=== PATIENT | female | born 1985 | race Caucasian/White ===

== ENCOUNTER 2017-05-09 11:07 | Day surgery (SDC) | payer BC ==
[~2017-05-09] VITALS: Ht 165.1 cm; Wt 89.8 kg
[~2017-05-09 11:07] MED LIST: AUGMENTIN875 MG PO; FOLBIC RF TABL1 EACH PO; IRON325 M1 PO; Micronor PO; Motrin PO; Natalcare Rx,Pramile PO; PERCOCET 5/31 TABLET PO; PRILOSEC40 MG PO; SERTRALINE HCL50 MG PO; TRAZODONE HCL50 MG PO; TYLENOL EXTRA500 MG PO; VIACTIV SOFT C1 EACH PO; Vicodin,Norco 5/325 PO; Vitamin D PO; celeBREX PO
[2017-05-09 12:09] VITALS: BP 100/54
[2017-05-09 12:31] LABS: MCH 15.8 PG (29.0-34.0); MCHC 27.7 G/DL (30.0-36.0); MCV 56.9 FL (83-99); RBC DIS.WIDTH-CV 20.2 % (11.8-14.6); RBC DIS.WIDTH-SD 37.4 % (39-53); RED BLOOD COUNT 4.57 M/uL (3.80-5.20); WHITE BLOOD COUNT 6.2 K/uL (4.1-10.2)
[2017-05-09 12:32] LABS: PLATELET COUNT 424 K/uL (156-360)
[2017-05-09 15:50] VITALS: BP 95/52
[2017-05-09 16:53] VITALS: BP 99/48
[2017-05-09 18:00] VITALS: BP 104/52
== END 2017-05-09 18:05 | disposition home or self-care (01) ==
LOC: SDC 11:07
PROVIDERS: Obstetrics & Gynecology
PROC: 0U574ZZ Destruction of Bilateral Fallopian Tubes, Percutaneous Endoscopic Approach (ICD-10-PCS; principal; 2017-05-09)
DX: Z30.2 Encounter for sterilization (principal); K21.9 Gastro-esophageal reflux disease without esophagitis; Z98.84 Bariatric surgery status; Z83.3 Family history of diabetes mellitus; Z82.49 Family history of ischemic heart disease and other diseases of the circulatory system
CPT/HCPCS: 85027; J0330; J1100; J1170; J1885; J2250; J2405; J2710; J3010; S0020

== ENCOUNTER 2017-10-23 06:40 | Day surgery (SDC) | payer BC ==
[~2017-10-23] VITALS: Ht 165.1 cm; Wt 90.7 kg
[~2017-10-23 06:40] MED LIST changes: +CYANOCOBAL1000 MCG/2 IM; +ERGOCALCIF50000 UNIT PO
[2017-10-23 07:04] VITALS: BP 85/46
[2017-10-23] MEDS ORDERED: ULTRAM50 MG PO (10:14)
[2017-10-23 11:08] VITALS: BP 104/58
[2017-10-23 11:31] VITALS: BP 107/58
== END 2017-10-23 11:40 | disposition home or self-care (01) ==
LOC: SDC 06:40
PROC: 0JBD0ZZ Excision of Right Upper Arm Subcutaneous Tissue and Fascia, Open Approach (ICD-10-PCS; principal; 2017-10-23)
DX: D17.20 Benign lipomatous neoplasm of skin and subcutaneous tissue of unspecified limb (principal); F41.8 Other specified anxiety disorders; Z98.84 Bariatric surgery status
CPT/HCPCS: 88304; J0690; J1100; J1885; J2250; J2405; J3010

== ENCOUNTER → 2018-02-19 | Outpatient (CLI) | payer BC ==
[~2018-02-19] VITALS: Ht 165.1 cm; Wt 93.0 kg
[~2018-02-19] MED LIST changes: +ONE DAILY WOME1 EACH PO; +PROTONIX40 MG PO; +ULTRAM50 MG PO
== END | disposition home or self-care (01) ==
LOC: AMB 10:16
PROC: 0DJ08ZZ Inspection of Upper Intestinal Tract, Via Natural or Artificial Opening Endoscopic (ICD-10-PCS; principal; 2018-02-19)
DX: K21.0 Gastro-esophageal reflux disease with esophagitis (principal); K29.70 Gastritis, unspecified, without bleeding; R11.2 Nausea with vomiting, unspecified; Z98.84 Bariatric surgery status; R19.7 Diarrhea, unspecified; D50.9 Iron deficiency anemia, unspecified; E53.8 Deficiency of other specified B group vitamins; K90.89 Other intestinal malabsorption